=== PATIENT | female | born 1950 | race African-American/Black ===

== ENCOUNTER 2024-09-21 07:26 | Inpatient (IN) | payer MEDICARE, MEDICAID ==
[~2024-09-21] VITALS: Ht 170.2 cm; Wt 81.6 kg
[~2024-09-21 07:26] MED LIST: ACET-3161 PO; ALBU18HF2 IH; ALPR2TAB2 PO; ASPI-1079 PO; CLOP-31 PO; GABA-1180 PO; OXYC-105 PO; ZOLP5TAB2 PO
[2024-09-21] MEDS ORDERED: LIDOCAINE HCL/PF 1% 10 MG/ML 5ML VIAL ONE ×2 (09:47→10:36)
[2024-09-21] MEDS ORDERED: HEPARIN 1000 UNITS/ML 10ML ONE ×2 (09:47→10:50)
[2024-09-21] MEDS ORDERED: IODIXANOL 320MG/ML 100 ML BOTTLE IV ONE (09:47)
[2024-09-21] MEDS ORDERED: MIDAZOLAM HCL 2 MG/2 ML VIAL ONE ×2 (10:08→11:15)
[2024-09-21] MEDS ORDERED: FENTANYL CITRATE/PF 50MCG/ML 2ML VIAL ONE ×2 (10:08→11:15)
[2024-09-21] MEDS ORDERED: CLOPIDOGREL 75MG TABLET ONE (10:56)
[2024-09-21] MEDS ORDERED: ASPIRIN 325MG TABLET ONE (11:06)
[2024-09-21] MEDS ORDERED: HYDRALAZINE 20MG/ML VIAL ONE (11:13)
[2024-09-21] MEDS ORDERED: ACETAMINOPHEN 325MG TABLET PO PRN (11:45)
[2024-09-21] MEDS ORDERED: ATROPINE SULFATE 1MG/10ML SYR IV PRN (11:45)
[2024-09-21] MEDS ORDERED: ONDANSETRON HCL 4MG/2ML INJ IV PRN (11:45)
[2024-09-21 12:00] VITALS: BP 154/76; PULSE 90; RESP 12; TEMP 36.9; O2SAT 100
[2024-09-21 12:42] VITALS: BP 154/76; PULSE 90; RESP 12; TEMP 36.974
[2024-09-21] MEDS: GABAPENTIN 300MG CAPSULE PO SCH (15:07)
[2024-09-21] MEDS: CLONIDINE 0.1MG TABLET PO PRN (15:07)
[2024-09-21] MEDS ORDERED: NALOXONE HCL 0.4MG/ML VIAL IV PRN (15:15)
[2024-09-21] MEDS: OXYCODONE HCL/ACETAMINOPHEN 5/325MG TABLET PO PRN (15:28)
[2024-09-21 16:00] VITALS: BP 147/82; PULSE 81; RESP 20; TEMP 36.7; O2SAT 100
[2024-09-21] MEDS: AMLODIPINE 5MG TABLET PO SCH (20:44)
[2024-09-21] MEDS: ATORVASTATIN CALCIUM 20MG TABLET PO SCH (20:44)
[2024-09-21] MEDS ORDERED: AMLODIPINE 2.5MG TABLET PO SCH (21:00)
[2024-09-21] MEDS: ZOLPIDEM TARTRATE 5MG TABLET PO PRN (22:15)
[2024-09-22] VITALS: BP 147/82; PULSE 85; RESP 15; TEMP 36.3; O2SAT 100
[2024-09-22 04:00] VITALS: BP 110/83; PULSE 85; RESP 17; TEMP 37.1
[2024-09-22] MEDS: ALPRAZOLAM 0.25 MG TABLET PO PRN (04:06)
[2024-09-22] MEDS: PROMETHAZINE/DEXTROMETHORPHAN 6.25-15MG/5ML PO PRN (04:21)
[2024-09-22 07:10] LABS: BASOPHILS % 0.4 % (0.0-2.0); EOSINOPHILS % 2.3 % (0.0-5.0); HEMATOCRIT. 36.8 % (36.0-48.0); HEMOGLOBIN. 12.4 g/dL (12.0-16.0); LYMPHOCYTES % 23.2 % (20.0-50.0); MEAN PLATELET VOLUME 8.1 fl (7.4-10.4); MONOCYTES % 8.4 % (2.0-8.0); NEUTROPHILS % 65.7 % (40.0-76.0); PLATELET 150 x1000/uL (130-400); RED BLOOD CELL COUNT 4.42 mill/uL (4.2-5.4); RED CELL DISTRIBUTION WIDTH 15.4 % (11.6-14.6)
[2024-09-22 07:31] LABS: CREATININE 0.8 mg/dL (0.6-1.0); UREA NITROGEN BLOOD 14 mg/dL (9-23)
[2024-09-22 08:00] VITALS: BP 169/75; PULSE 67; RESP 17; TEMP 36.7; O2SAT 98
[2024-09-22] MEDS: ASPIRIN 325MG TABLET PO SCH (10:58)
[2024-09-22] MEDS: CLOPIDOGREL 75MG TABLET PO SCH (10:59)
[2024-09-22 12:00] VITALS: BP 156/71; PULSE 63; RESP 15; TEMP 36.7; O2SAT 99
[2024-09-22 13:26] VITALS: BP 169/75; PULSE 67; TEMP 98; O2SAT 98
== END 2024-09-22 13:45 | disposition home or self-care (01) | DRG 322 ==
LOC: OR 07:26 → 3WST 07:27
PROVIDERS: ADMIT Specialist; ATTEND Specialist
PROC: 4A023N7 Measurement of Cardiac Sampling and Pressure, Left Heart, Percutaneous Approach (ICD-10-PCS; principal; 2024-09-21)
PROC: 027034Z Dilation of Coronary Artery, One Artery with Drug-eluting Intraluminal Device, Percutaneous Approach (ICD-10-PCS; 2024-09-21)
PROC: B211YZZ Fluoroscopy of Multiple Coronary Arteries using Other Contrast (ICD-10-PCS; 2024-09-21)
DX: I25.10 Atherosclerotic heart disease of native coronary artery without angina pectoris (principal); E78.5 Hyperlipidemia, unspecified; F17.200 Nicotine dependence, unspecified, uncomplicated; E11.51 Type 2 diabetes mellitus with diabetic peripheral angiopathy without gangrene; F51.04 Psychophysiologic insomnia; I10 Essential (primary) hypertension; I34.0 Nonrheumatic mitral (valve) insufficiency; J44.9 Chronic obstructive pulmonary disease, unspecified; Z79.02 Long term (current) use of antithrombotics/antiplatelets; Z79.51 Long term (current) use of inhaled steroids; Z79.82 Long term (current) use of aspirin; Z79.899 Other long term (current) drug therapy; Z88.2 Allergy status to sulfonamides; Z95.820 Peripheral vascular angioplasty status with implants and grafts
CPT/HCPCS: 36415; 80048; 82962; 83735; 85025; 85347; 92928; 93005; 93458; A4606; C1769; C1874; C1887; C1893; J0360; J1644; J2003; J2250; J3010; Q9967

== ENCOUNTER → 2024-12-28 | Day surgery (SDC) | payer MEDICARE, MEDICAID ==
[~2024-12-28] VITALS: Ht 170.2 cm; Wt 81.6 kg
[~2024-12-28] MED LIST changes: +ACETAMINOPHEN 325MG TABLET PO PRN; +AMLO10TA80 PO; +FENTANYL CITRATE/PF 50MCG/ML 2ML VIAL ONE; +HEPARIN 1000 UNITS/ML 10ML ONE; +IODIXANOL 320MG/ML 100 ML BOTTLE IV ONE; +LIDOCAINE HCL 1% 20ML VIAL ONE; +MIDAZOLAM HCL 2 MG/2 ML VIAL ONE; +ONDANSETRON HCL 4MG/2ML INJ IV PRN; +RAMI10CA75 PO
== END | disposition home or self-care (01) ==
LOC: CCL 07:51
PROVIDERS: ATTEND Specialist
DX: E11.51 Type 2 diabetes mellitus with diabetic peripheral angiopathy without gangrene (principal); I70.211 Atherosclerosis of native arteries of extremities with intermittent claudication, right leg; I25.10 Atherosclerotic heart disease of native coronary artery without angina pectoris; I10 Essential (primary) hypertension; F41.9 Anxiety disorder, unspecified; J44.9 Chronic obstructive pulmonary disease, unspecified; F51.04 Psychophysiologic insomnia; F17.200 Nicotine dependence, unspecified, uncomplicated; Z79.02 Long term (current) use of antithrombotics/antiplatelets; Z79.82 Long term (current) use of aspirin; Z79.899 Other long term (current) drug therapy; Z88.2 Allergy status to sulfonamides; Z95.5 Presence of coronary angioplasty implant and graft; Z96.652 Presence of left artificial knee joint; Z98.890 Other specified postprocedural states
CPT/HCPCS: 75710; 36245; C1893; C1769 ×2; C1725; J3010; Q9967; J1644 ×2; J2003; J2250; 99152; A4606; G0500